=== PATIENT | female | born 1985 ===

== ENCOUNTER 2016-11-16 11:46 | Emergency (ER) | payer SELFPAY ==
--- NOTE | 2016-12-04 15:51 | ER ---
ADMIT: 11/16/2016 RM/LOC: ER [facility] MR#: [id number] [facility] [address] [place], [place] [id number] [address] [place], [place] [id number] Emergency Room Report SEX: F AGE: 31 : 1985 DATE: 11/16/2016 ADDENDUM: CHIEF COMPLAINT: Right ear pain. HISTORY OF PRESENT ILLNESS: This is a 31-year-old, who started having right ear pain starting yesterday. She said it was pretty significant, but did not think really much of it until today, she noticed blood and purulent drainage in her right ear. When examining her ear, her right TM is perforated. I am placing her on Floxin otic for 14 days. Having her followup with ENT after the drops are completed. CLINICAL IMPRESSION: Perforated right TM. KARLIE Toribio / Chapito Junior MD / modl JOB #: [id number] CC: Chapito Junior MD, Attending Physician Fletcher Purdy MD, Family Physician
== END 2016-11-16 13:11 | disposition home or self-care (01) ==
LOC: ER 11:46
DX: H66.91 Otitis media, unspecified, right ear (principal); H72.2X1 Other marginal perforations of tympanic membrane, right ear; Z90.49 Acquired absence of other specified parts of digestive tract